=== PATIENT | female | born 1940 | race Caucasian/White ===

== ENCOUNTER → 2019-01-03 | Outpatient (CLI) | payer OTHER ==
[~2019-01-03] MED LIST: ACETAMINOPHEN PO; APAP650 PO; AUGMENTIN 875875 MG PO; BENTYL10 MG PO; CALCIUM 500 +1 EAC5 PO; CALCIUM PO; CLONAZEPAM 1 MG1 M1 PO; CLONAZEPAM PO; COLACE100 MG PO; CYMBALTA30 MG PO; CYMBALTA60 MG PO; DESYREL PO; ESTROBLEND PO; ESTROVEN ENER400 MCG PO; ESTROVEN MAX200 MCG PO; FENTANYL PA25 MCG/HR TRANSDERM; FENTANYL PA50 MCG/HR TRANSDERM; FISHOIL PO; GLUCOSAMINE CH1 EAC7 PO; GLUCOSAMINE HC500 MG PO; HYDROCODON-ACE1 EAC1 PO; HYDROCODON-ACE1 EAC7 PO; HYDROCODONE-AP1 EAC6 PO; LIDODERM 5%1 PATCH TOP; LYRICA 75 MG CA75 MG PO; MAGOX 400400 MG PO; METAMUCIL PAC1 UDPKT PO; METHOCARBAMOL500 M1 PO; MIRALAX255 GM PO; MOBIC15 MG PO; MOM; MORPHINE SULFAT30 M1 PO; MS CONTIN 60 MG60 M1 PO; MS CONTIN30 MG PO; NORCO 7.5-3251 EACH PO; NYSTATIN 100,0015 G1 TOP; OMEPRAZOLE40 MG PO; OTC ALLERGY MED; POTASSIUM99 M1 PO; PREDNISONE 10 M10 MG PO; PREMARIN1.25 MG PO; PRENATAL VITAM1 EAC6 PO; PROTONIX40 M1 PO; SENOKOT-S1 TA2 GT; SERTRALINE HCL100 MG PO; SIMVASTATIN20 MG PO; STOOL SOFTENER1 EAC2 PO; TRAZODONE 150150 M1 PO; TRAZODONE HCL50 MG PO; VICODIN; VITAMIN D1000 UNI1 PO; VITAMIN E400 UNIT PO; VITAMINC500; VITAMINC500 PO; ZOFRAN4 MG PO
== END ==
LOC: M.CT 15:00
DX: Z12.31 Encounter for screening mammogram for malignant neoplasm of breast (principal); S09.8XXA Other specified injuries of head, initial encounter; R22.0 Localized swelling, mass and lump, head; X58.XXXA Exposure to other specified factors, initial encounter; Y93.89 Activity, other specified; Y92.89 Other specified places as the place of occurrence of the external cause; Y99.8 Other external cause status

== ENCOUNTER 2020-01-09 13:42 | Inpatient (IN) | payer OTHER ==
[~2020-01-09] VITALS: Ht 160 cm; Wt 77.6 kg
[2020-01-09 13:49] VITALS: BP 143/85
[2020-01-09] MEDS ORDERED: TRAZODONE HCL100 MG PO (14:17)
[2020-01-09] MEDS ORDERED: PAXIL40 MG PO (14:17)
[2020-01-09] MEDS ORDERED: MELOXICAM15 MG PO (14:17)
[2020-01-09] MEDS ORDERED: ZOCOR 20 MG TAB20 M1 PO (14:18)
[2020-01-09] MEDS ORDERED: ARYMO ER15 MG PO (14:18)
[2020-01-09] MEDS ORDERED: STOOL SOFTENER100 MG PO (14:18)
[2020-01-09] MEDS ORDERED: BENTYL 20 MG TA20 M1 PO (14:19)
[2020-01-09] MEDS ORDERED: KLOR-CON M2020 MEQ PO (14:19)
[2020-01-09 14:33] LABS: ABSOLUTE BASOPHILS 0.1 thou/uL (0.0-0.2); ABSOLUTE EOSINOPHILS 0.1 thou/uL (0.0-0.7); ABSOLUTE MONOCYTES 0.8 thou/uL (0.0-1.2); BASOPHILS 0.5 %; EOSINOPHILS 0.9 %; HEMATOCRIT 42.1 % (37.0-47.0); HEMOGLOBIN 14.4 gm/dL (12.0-15.0); MCH 30.5 pg (26.0-34.0); MCHC 34.3 g/dL (28.0-37.0); MONOCYTES 7.8 %; MPV 6.8 fl. (7.2-11.1); NUCLEATED RBCS 0 /100WBC; PLATELET COUNT* 290 thou/uL (150-400); POLYS 70.8 %; RBC 4.73 mil/uL (4.20-5.00); RDW-CV 13.1 % (10.5-14.5); WBC 9.9 thou/uL (4.0-11.0)
[2020-01-09 14:44] LABS: CREATININE 1.1 mg/dL (0.6-1.3); POTASSIUM 3.6 mmol/L (3.5-5.1)
[2020-01-09 14:48] LABS: ALBUMIN 3.9 g/dL (3.4-5.0); TOTAL BILIRUBIN 1.3 mg/dL (<0.1-1.0); TOTAL PROTEIN 7.4 g/dL (6.4-8.2)
[2020-01-09 19:36] VITALS: BP 124/70
[2020-01-09 19:45] VITALS: BP 130/68
--- NOTE | 2020-01-09 19:45 | NUR ---
PT ADMITTED TO FLOOR PER CART ACCOMPANIED BY ER STAFF WITH BELONGINGS. ORIENTED TO ROOM AND CALL LITE, HISTORY OBTAINED AND ASSESSMENT PERFORMED, SEE ADMIT NOTES. LAC IVF PLACED ON PUMP FOR INFUSION. PT CO SLIGHT PAIN AND NAUSEA, MEDS GIVEN. REFUSING NGT PLACEMENT. PT CALM AND COOPERATIVE, DOES NOT APPEAR TO BE IN DISTRESS. SWABS GIVEN FOR ORAL CARE, NPO STATUS EXPLAINED TO PT AND SHE VERBALIZES UNDERSTANDING. CALL LITE IN REACH, BED ALARM ON FOR SAFETY.
[2020-01-10 04:42] LABS: ABSOLUTE EOSINOPHILS 0.2 thou/uL (0.0-0.7); ABSOLUTE LYMPHOCYTES 1.9 thou/uL (0.8-5.3); ABSOLUTE MONOCYTES 0.6 thou/uL (0.0-1.2); BASOPHILS 0.3 %; EOSINOPHILS 2.3 %; HEMATOCRIT 34.3 % (37.0-47.0); MCH 30.6 pg (26.0-34.0); MCHC 34.4 g/dL (28.0-37.0); MONOCYTES 7.5 %; NUCLEATED RBCS 0 /100WBC; POLYS 64.9 %; RBC 3.85 mil/uL (4.20-5.00); RDW-CV 13.1 % (10.5-14.5); WBC 7.7 thou/uL (4.0-11.0)
[2020-01-10 05:07] LABS: CALCIUM 7.7 mg/dL (8.5-10.1); MAGNESIUM 1.7 mg/dL (1.8-2.4); PHOSPHORUS* 2.8 mg/dL (2.5-4.9); POTASSIUM 3.4 mmol/L (3.5-5.1); TOTAL PROTEIN 5.6 g/dL (6.4-8.2)
[2020-01-10 05:21] LABS: URINE BILIRUBIN NEGATIVE (Negative); URINE BLOOD NEGATIVE (Negative); URINE CLARITY CLEAR; URINE COLOR YELLOW; URINE GLUCOSE-RANDOM NEGATIVE (Negative); URINE KETONES NEGATIVE (Negative); URINE LEUKOCYTES-REFLEX NEGATIVE (Negative); URINE NITRITE-REFLEX NEGATIVE (Negative); URINE PROTEIN TRACE (Negative)
[2020-01-10 05:32] LABS: HEMOGLOBIN 11.8 gm/dL (12.0-15.0); PLATELET COUNT* 195 thou/uL (150-400)
--- NOTE | 2020-01-10 05:43 | NUR ---
PT HAS SLEPT FOR SHORT INTERVALS OVERNIGHT. IV PAIN AND NAUSEA MEDS GIVEN NEEDED, NO EMESIS. LAC IVF INFUSING PER PUMP. UP WITH SBA TO BR TO VOID WITHOUT DIFFICULTY, UA SENT TO LAB. AM LABS DRAWN. AOX4, ABLE TO USE CALL LITE AND MAKE NEEDS KNOWN. NPO.
[2020-01-10 07:40] VITALS: BP 134/70
--- NOTE | 2020-01-10 09:18 | EKG ---
[place] [address] ELECTROCARDIOGRAM REPORT Name: ARLYN GOODWIN Room: [address] ADM IN [facility].#: [id number] Admission: 01/09/20 Attend Phys: Grzegorz Phillips, Discharge: Date of : 40 Date of Service: 01/09/20 1413 Report #: [id number] THIS REPORT FOR: //name// [facility] ED Test Date: 2020-01-09 Test Time: 14:13:33 Pat Name: ARLYN GOODWIN Department: Room: [facility] Gender: F Research Tech: VISH : 1940 Requested By: Zhao Clarke Order Number: [id number] MD: Prasanth Mcghee Measurements Intervals [place] Rate: 98 P: 43 WA: 135 QRS: 2 QRSD: 100 T: -1 QT: 352 QTc: 450 Interpretive Statements Sinus rhythm Probable left atrial enlargement Borderline T abnormalities, inferior leads Baseline wander in lead(s) V2,V4,V6 Compared to ECG 07/17/2016 14:47:52 T-wave abnormality now present Electronically Signed On 01-10-2020 9:18:09 STITCHER HAND by Prasanth Mcghee [email or web address] <ELECTRONICALLY SIGNED> By: Prasanth Mcghee MD, FACC 01/10/20 0918 [id number] 141 Prasanth Mcghee MD, FACC /EPI
--- NOTE | 2020-01-10 09:46 | NUR ---
Pt is A&O. Resides at home alone. Normally active and independent. No DME. No hx of HH. Hx of SNF at [facility] x10 years ago post back surgery. Pt states that she will have a NG tube placed today. Goal is home at de, ?? HH closer to de, Pt open to HH if needed. Following.
[2020-01-10 15:30] VITALS: BP 139/74
--- NOTE | 2020-01-10 18:27 | NUR ---
PATIENT RESTING IN BED. PATIENT IS UP STANDBY ASSIST IN ROOM. PATIENT HAD NG TUBE PLACED THIS AM WITHOUT INCIDIENT. PATIENT HAS HAD 400ML OUT OF YELLOW/BROWN BILE. PATIENT HAS HAD COMPLAINTS OF ABDOMINAL PAIN, TREATED ADEQUATELY WITH FENTANYL. PATIENT HAS DENIED ANY NAUSEA SINCE NG TUBE PLACEMENT. PATIENT HAS HAD BOWEL MOVEMENTS X 3 TODAY, LOOSE BROWN STOOLS. PATIENT IS NPO WITH ICE CHIPS. PATIENT DENIES ANY NEEDS AT THIS TIME. CALL LIGHT WITHIN REACH.
[2020-01-11 04:24] LABS: ABSOLUTE EOSINOPHILS 0.1 thou/uL (0.0-0.7); ABSOLUTE LYMPHOCYTES 1.2 thou/uL (0.8-5.3); ABSOLUTE MONOCYTES 0.5 thou/uL (0.0-1.2); ABSOLUTE NEUTROPHILS 6.3 thou/uL (1.6-8.1); BASOPHILS 0.2 %; EOSINOPHILS 1.8 %; HEMATOCRIT 33.5 % (37.0-47.0); HEMOGLOBIN 11.5 gm/dL (12.0-15.0); LYMPHOCYTES 14.9 %; MCH 30.8 pg (26.0-34.0); MCHC 34.5 g/dL (28.0-37.0); MCV 89.4 fL (80.0-100.0); MPV 6.9 fl. (7.2-11.1); NUCLEATED RBCS 0 /100WBC; PLATELET COUNT* 221 thou/uL (150-400); POLYS 77.1 %; RBC 3.74 mil/uL (4.20-5.00); RDW-CV 12.9 % (10.5-14.5); WBC 8.1 thou/uL (4.0-11.0)
--- NOTE | 2020-01-11 04:38 | NUR ---
PATIENT SLEPT WELL DURING THIS SHIFT. PT ABLE TO MOVE SELF IN BED. PT USES CALL LIGHT APPROPRIATELY FOR ASSISTANCE TO BATHROOM. PT UP TO BATHROOM WITH STANDBY. NG IN LT NARE ON L-I SUCTION WITH YELLOW/BROWN DRAINAGE. FLUIDS INFUSING PER DR ORDER. WILL CONTINUE TO MONITOR.
[2020-01-11 05:07] LABS: ALBUMIN 2.9 g/dL (3.4-5.0); CALCIUM 7.7 mg/dL (8.5-10.1); CREATININE 0.7 mg/dL (0.6-1.3); TOTAL BILIRUBIN 0.5 mg/dL (<0.1-1.0); TOTAL PROTEIN 5.6 g/dL (6.4-8.2)
[2020-01-11 06:07] LABS: POTASSIUM 2.9 mmol/L (3.5-5.1)
[2020-01-11 06:24] LABS: HEMATOCRIT 33.5 % (37.0-47.0); HEMOGLOBIN 11.5 gm/dL (12.0-15.0); MCH 30.8 pg (26.0-34.0); MCHC 34.5 g/dL (28.0-37.0); MCV 89.4 fL (80.0-100.0); RBC 3.74 mil/uL (4.20-5.00); WBC 8.1 thou/uL (4.0-11.0)
[2020-01-11 06:25] LABS: MPV 6.9 fl. (7.2-11.1); RDW-CV 12.9 % (10.5-14.5)
[2020-01-11 08:00] VITALS: BP 159/82
--- NOTE | 2020-01-11 11:59 | NUR ---
NG TUBE CLAMPED. DIET CHANGED TO CLEAR LIQ.
[2020-01-11 13:09] LABS: CALCIUM 8.4 mg/dL (8.5-10.1); CREATININE 0.8 mg/dL (0.6-1.3); POTASSIUM 3.6 mmol/L (3.5-5.1)
[2020-01-11 13:12] LABS: MAGNESIUM 1.8 mg/dL (1.8-2.4); PHOSPHORUS* 2.4 mg/dL (2.5-4.9)
[2020-01-11 16:00] VITALS: BP 170/88
--- NOTE | 2020-01-11 17:28 | NUR ---
A&O X 4, PWD. UP AD-SHALOM IN ROOM WITH STEADY GAIT. IV FLUIDS CHANGED TO D5 1/2NS WITH 20 KCL AT 80MLS/HR. IV LEFT FOREARM, 22G RESTARTED TODAY. LUNGS CLEAR, HEART TONES REGULAR. +BS X 4 QUADS. PEDAL PULSES PRESENT NO EDEMA NOTED. NG TO LEFT NARE INTACT AND CLAMPED PER ORDER. PT TOLERATING CLEAR LIQUID DIET WITHOUT NAUSEA AND VOMITING. MAG 1.8 DID RE[address] WITH MAG 400MG TAB. NO C/O AT THIS TIME. CALL LIGHT WITHIN REACH. WILL CONTINUE TO MONITOR.
--- NOTE | 2020-01-11 18:31 | NUR ---
pt had approx. 3 cups of ice chips today and out put throught ng tube 100mls.
[2020-01-11 20:04] VITALS: BP 143/75
[2020-01-12 04:15] LABS: ABSOLUTE EOSINOPHILS 0.3 thou/uL (0.0-0.7); ABSOLUTE LYMPHOCYTES 1.3 thou/uL (0.8-5.3); ABSOLUTE MONOCYTES 0.6 thou/uL (0.0-1.2); ABSOLUTE NEUTROPHILS 6.4 thou/uL (1.6-8.1); BASOPHILS 0.4 %; EOSINOPHILS 3.4 %; HEMATOCRIT 33.7 % (37.0-47.0); HEMOGLOBIN 11.8 gm/dL (12.0-15.0); LYMPHOCYTES 15.4 %; MCH 30.6 pg (26.0-34.0); MCHC 35.1 g/dL (28.0-37.0); MCV 87.2 fL (80.0-100.0); MONOCYTES 6.7 %; MPV 6.8 fl. (7.2-11.1); NUCLEATED RBCS 0 /100WBC; PLATELET COUNT* 251 thou/uL (150-400); POLYS 74.1 %; RBC 3.87 mil/uL (4.20-5.00); RDW-CV 12.7 % (10.5-14.5); WBC 8.6 thou/uL (4.0-11.0)
[2020-01-12 04:28] LABS: CREATININE 0.7 mg/dL (0.6-1.3)
--- NOTE | 2020-01-12 06:03 | NUR ---
PATIENT SLEPT MOST OF THE NIGHT. IV FLUIDS CONTINUE TO INFUSE ORDERED. NG TUBE REMAINS CLAMPED. PATIENT HAS HAD NO COMPLAINTS OF PAIN OR NAUSEA. WILL CONTINUE TO MONITOR.
[2020-01-12 07:30] VITALS: BP 190/85
[2020-01-12 08:57] VITALS: BP 141/74
[2020-01-12 17:10] VITALS: BP 153/82
--- NOTE | 2020-01-12 17:56 | NUR ---
A&OX 4, PWD. NG DC'D FROM LEFT NARE THIS AM. PT'S K+ LEVEL LOW PO K+ GIVEN X 2 THEN RECHECKED AND WAS 3.3. AGAIN PUT ON K+ PROTOCOL AND 2ND 40 MEQ K+'S GIVEN TO PT. TO REDRAWN IN 4 HOURS. PT HAD SCD'S ON TODAY THEN CAUSED HER TO HAVE RESTLESS LEGS AND SHE REFUSED THEM. TYLENOL GIVEN AND HELPED WITH THE LEG PAIN. IV LEFT FORARM D51/2 NS WITH 20 KCL INFUSING AT 80MLS/HR. PT SHOWERED THIS AM AND BED LINENS CHANGED. LUNGS CLEAR, HEART TONES REG. PEDAL PULSES PRESENT NO EDEMA NOTED. CALL LIGHT WITHIN REACH. PT WALKS BACK AND FORTH IN ROOM FOR EXERCISE WITH STEADY GAIT. RIGHT LOWER QUAD ABD. TENDER WITH PALPATION ON EXAM THIS AM. +BS X 4 QUADS. PT EATING FULL LIQUID DIET FOR LUNCH AND DINNER AND TOLERATED WELL. WILL CONTINUE TO MONITOR.
[2020-01-12 19:17] VITALS: BP 141/72
[2020-01-12 21:03] LABS: MAGNESIUM 1.6 mg/dL (1.8-2.4)
[2020-01-13 04:10] LABS: ABSOLUTE BASOPHILS 0.1 thou/uL (0.0-0.2); ABSOLUTE EOSINOPHILS 0.4 thou/uL (0.0-0.7); ABSOLUTE LYMPHOCYTES 2.2 thou/uL (0.8-5.3); ABSOLUTE MONOCYTES 0.7 thou/uL (0.0-1.2); ABSOLUTE NEUTROPHILS 5.9 thou/uL (1.6-8.1); BASOPHILS 0.6 %; EOSINOPHILS 4.7 %; HEMATOCRIT 38.2 % (37.0-47.0); HEMOGLOBIN 13.1 gm/dL (12.0-15.0); LYMPHOCYTES 23.5 %; MCH 30.3 pg (26.0-34.0); MCHC 34.1 g/dL (28.0-37.0); MCV 88.6 fL (80.0-100.0); MONOCYTES 7.2 %; MPV 6.9 fl. (7.2-11.1); NUCLEATED RBCS 0 /100WBC; PLATELET COUNT* 319 thou/uL (150-400); RBC 4.31 mil/uL (4.20-5.00); RDW-CV 13.1 % (10.5-14.5); WBC 9.2 thou/uL (4.0-11.0)
[2020-01-13 04:38] LABS: CALCIUM 8.6 mg/dL (8.5-10.1); CREATININE 0.9 mg/dL (0.6-1.3); MAGNESIUM 1.7 mg/dL (1.8-2.4); POTASSIUM 3.6 mmol/L (3.5-5.1)
--- NOTE | 2020-01-13 07:21 | NUR ---
Alert and oriented x 4. She is up independently to the bathroom. She has been having leg cramps and she had fentanyl x 1 and that did help. She has had MG+ 3 times this shift. She has slept intermittenly.
[2020-01-13 07:30] VITALS: BP 153/74
--- NOTE | 2020-01-13 09:00 | NUR ---
0900 to x-ray for abd. series.
--- NOTE | 2020-01-13 12:34 | NUR ---
NG WAS REMOVED YESTERDAY. PT.HAD ABD SERIES THIS AM. SHE IS ANXIOUS TO HEAR RESULTS. HOMES TO GO HOME SOON. IS ON FULL LIQUID DIET.
[2020-01-13 15:58] VITALS: BP 160/92
--- NOTE | 2020-01-13 16:01 | NUR ---
A&OX4, PWD. LUNGS CLEAR, HEART TONES REGULAR. +BS X 4 QUADS. TENDERNESS RIGHT LOWER QUAD ON PALPATION. IV LEFT FA INTACT AND PATENT. IV D51/2 NS WITIH 20MEQ KCL AT 80MLS/HR INFUSING WITHOUT DIFFICULTY. STATED, I'M HAVING A BETTER DAY TODAY. ZOFRAN GIVEN X 1 FOR NAUSEA. NO C/O PAIN. TOLERATING FULL LIQ. DIET. STILL JUST EATING BITES AT A TIME. WILL CONTINUE TO MONITOR.
[2020-01-13 20:15] VITALS: BP 159/72
[2020-01-14 04:43] LABS: ABSOLUTE EOSINOPHILS 0.4 thou/uL (0.0-0.7); ABSOLUTE LYMPHOCYTES 2.1 thou/uL (0.8-5.3); ABSOLUTE MONOCYTES 0.6 thou/uL (0.0-1.2); ABSOLUTE NEUTROPHILS 4.6 thou/uL (1.6-8.1); BASOPHILS 0.5 %; EOSINOPHILS 5.5 %; HEMATOCRIT 32.4 % (37.0-47.0); HEMOGLOBIN 11.3 gm/dL (12.0-15.0); MCH 30.3 pg (26.0-34.0); MCHC 34.7 g/dL (28.0-37.0); MCV 87.2 fL (80.0-100.0); MONOCYTES 7.4 %; NUCLEATED RBCS 0 /100WBC; PLATELET COUNT* 270 thou/uL (150-400); POLYS 59.6 %; RBC 3.72 mil/uL (4.20-5.00); WBC 7.8 thou/uL (4.0-11.0)
[2020-01-14 04:47] LABS: CALCIUM 7.9 mg/dL (8.5-10.1); CREATININE 0.9 mg/dL (0.6-1.3); POTASSIUM 3.3 mmol/L (3.5-5.1)
--- NOTE | 2020-01-14 05:39 | NUR ---
PT SLEPT FAIRLY WELLOVERNIGHT AFTER RECEIVING MEDS AT HS. UP AD SHALOM IN ROOM TO BR TO VOID AND HAVE LOOSE STOOL PT REPORTS. RECEIVED IV PAIN MED FOR CO LEG PAIN AT HS, HAS DENIED ABD PAIN OR NAUSEA-"SOME TENDERNESS". HOPEFUL FOR DIET ADVANCEMENT AND DISCHARGE HOME SOON. AM LABS DRAWN. IVF INFUSING LFA. AOX4, ABLE TO USE CALL LITE AND MAKE NEEDS KNOWN.
[2020-01-14 07:50] VITALS: BP 153/52
[2020-01-14 11:12] VITALS: BP 153/52
--- NOTE | 2020-01-14 15:11 | NUR ---
PATIENT DISCHARGED TO HOME, OK WITH HOSPITALIST AND SURGERY IF DIET TOLERATED. PATIENT TOLERATED SOFT DIET AT LUNCH. HAVING BM'S AND PASSING FLATUS. POTASSIUM REPLACED PER PROTOCOL, PER DR. SALOMON NO REDRAW REQUIRED PRIOR TO DC. VERBALIZES UNDERSTANDING OF PAPERWORK, NO SCRIPTS. PATIENT TAKEN OUT VIA WHEELCHAIR WITH STAFF.
[2020-01-14 15:12] VITALS: BP 153/52
== END 2020-01-14 15:12 | disposition home or self-care (01) | DRG 389 ==
LOC: M.ERS 13:42 → M.TBA-ER 15:43 → M.3W 15:43
PROVIDERS: Physician Assistant; Surgery; ADMIT Internal Medicine; ATTEND Internal Medicine
PROC: 0D9670Z Drainage of Stomach with Drainage Device, Via Natural or Artificial Opening (ICD-10-PCS; principal; 2020-01-10)
DX: K56.609 Unspecified intestinal obstruction, unspecified as to partial versus complete obstruction (principal); E44.1 Mild protein-calorie malnutrition; F41.9 Anxiety disorder, unspecified; G89.29 Other chronic pain; Z20.828 Contact with and (suspected) exposure to other viral communicable diseases; Z90.710 Acquired absence of both cervix and uterus; Z68.30 Body mass index [BMI] 30.0-30.9, adult; Z90.49 Acquired absence of other specified parts of digestive tract; Z79.899 Other long term (current) drug therapy; Z28.21 Immunization not carried out because of patient refusal